=== PATIENT | male | born 1995 | race African-American/Black ===

== ENCOUNTER 2019-10-10 13:35 | Emergency (ER) | payer MEDICAID ==
[~2019-10-10] VITALS: Ht 182.9 cm; Wt 131.0 kg
[2019-10-10] MEDS ORDERED: ACETAMINOPHEN WITH CODEINE 300/30MG TABLET PO STA (16:51)
[2019-10-10] MEDS ORDERED: KETOROLAC 60MG/2ML VIAL IM STA (16:51)
[2019-10-10 20:14] VITALS: BP 137/79
== END 2019-10-10 20:19 | disposition home or self-care (01) ==
LOC: ER 13:35
DX: S52.122A Displaced fracture of head of left radius, initial encounter for closed fracture (principal); S52.124A Nondisplaced fracture of head of right radius, initial encounter for closed fracture; V00.131A Fall from skateboard, initial encounter; Y93.89 Activity, other specified; Y92.89 Other specified places as the place of occurrence of the external cause; Y99.8 Other external cause status
CPT/HCPCS: 29105; 73060; 73080; 73090; 96372; 99283; J1885; A4565